=== PATIENT | female | born 1995 | race African-American/Black ===

== ENCOUNTER 2016-11-18 16:34 | Emergency (ER) | payer SELFPAY ==
[2016-11-18 16:43] VITALS: BP 129/66
--- NOTE | 2016-11-18 17:49 | RADIOLOGY REPORT (SQ) ---
EXAM DESCRIPTION: FOREARM LEFT COMPLETED DATE/TIME: 11/18/2016 5:42 pm REASON FOR STUDY: injury, dropped 18 pack of beer on arm :( COMPARISON: None. NUMBER OF VIEWS: Two views. TECHNIQUE: Two radiographic images acquired of the left forearm, including elbow and wrist in at [address] one projection. LIMITATIONS: None. FINDINGS: MINERALIZATION: Normal. BONES: No acute fracture. No worrisome bone lesions. SOFT TISSUES: No obvious swelling or foreign body. OTHER: No other significant finding. IMPRESSION: NEGATIVE STUDY OF THE LEFT FOREARM. NO RADIOGRAPHIC EVIDENCE OF ACUTE INJURY. TECHNICAL DOCUMENTATION: JOB ID: [id number] [employer]- All Rights Reserved
--- NOTE | 2016-11-18 18:06 | ER Document Report ---
HPI - HPI Patient complains to provider of: arm pain Pain Level: 4 Context: 20 yo female c/o left forearm x 1 day. pt was at work today, an 18 pack of beer fell on arm Associated Symptoms: None Exacerbated by: Movement Relieved by: Denies Similar symptoms previously: No Recently seen / treated by doctor: No - ROS Systems Reviewed and Negative: Yes All other systems reviewed and negative - CARDIOVASCULAR Cardiovascular: DENIES: Chest pain - REPRODUCTIVE LMP: September 2016 - DERM Skin Color: Normal Past Medical History - General Information source: Patient - Social History Smoking Status: Never Smoker Chew tobacco use (# tins/day): No Frequency of alcohol use: Rare Drug Abuse: None Lives with: Family Family History: Reviewed & Not Pertinent - Medical History Medical History: Negative Renal/ Medical History: Denies: Hx Peritoneal Dialysis Past Surgical History: Reports: Hx Section, Hx Vascular Surgery - rt arm as child Vertical Provider Document - INFECTION CONTROL TRAVEL OUTSIDE OF THE [place] IN LAST 30 DAYS: No - HEENT HEENT: Atraumatic, PERRLA - NECK Neck: Normal Inspection, Supple - RESPIRATORY Respiratory: Breath Sounds Normal, No Respiratory Distress O2 Sat by Pulse Oximetry: 96 - CARDIOVASCULAR Cardiovascular: Regular Rate, Regular Rhythm - MUSCULOSKELETAL/EXTREMETIES Musculoskeletal/Extremeties: Tender - mild tenderness left radial forearm. mild soft tissue swelling. no deformity. no echymosis. distal SMC intact, FROM wrist and elbow - NEURO Level of Consciousness: Awake, Alert, Appropriate - DERM Integumentary: Warm, Dry Course - Re-evaluation Re-evalutation: 11/18/16 18:05 xray is negative today. results reviewed with patient. grzegorz wrap applied. pt stable for discharge - Vital Signs Vital signs: Temp Pulse Resp BP Pulse Ox 98.2 F 80 12 129/66 H 96 11/18/16 16:40 11/18/16 16:40 11/18/16 16:40 11/18/16 16:40 11/18/16 16:40 Procedures - Immobilization left forearm Pre-Proc Neuro Vasc Exam: Normal Immobilizer type: Grzegorz wrap Performed by: PCT Post-Proc Neuro Vasc Exam: Normal Alignment checked and good: Yes Discharge - Discharge Clinical Impression: Contusion of right forearm Qualifiers: Encounter type: initial encounter Qualified Code(s): S50.11XA - Contusion of right forearm, initial encounter Condition: Stable Disposition: HOME, SELF-CARE Instructions: Contusion ([facility]), Ibuprofen (General) ([facility]), Ice & Elevation ([facility]) , Grzegorz Wrap ([facility]) Additional Instructions: your xray is negative for fracture ice and elevate arm for comfort motrin for pain and swelling wear grzegorz wrap as needed follow up with primary care if pain persists Prescriptions: Ibuprofen [Motrin 800 Mg Tablet] 800 mg PO Q6H #20 tablet
== END 2016-11-18 18:16 | disposition home or self-care (01) ==
LOC: ER 16:34
DX: S50.12XA Contusion of left forearm, initial encounter (principal); W20.8XXA Other cause of strike by thrown, projected or falling object, initial encounter; Y92.9 Unspecified place or not applicable; Y99.0 Civilian activity done for income or pay
CPT/HCPCS: 99283

== ENCOUNTER 2019-02-26 17:29 | Emergency (ER) | payer SELFPAY ==
[2019-02-26 17:53] VITALS: BP 123/61
--- NOTE | 2019-02-26 18:08 | ER Document Report ---
ED Medical Screen (RME) - General Chief Complaint: Vaginal Bleeding Stated Complaint: VAGINAL BLEEDING Time Seen by Provider: 02/26/19 18:00 Mode of Arrival: Ambulatory Information source: Patient Notes: This 23-year-old female presents emergency department with a regular bleeding. Reports she had her menses January 28. Then she had another one this past Sunday. She reports she noted a clot and is worried she is had a miscarriage. G2, P2. No other complaints such as fever vomiting diarrhea. I have greeted and performed a rapid initial assessment of this patient. A comprehensive ED assessment and evaluation of the patient, analysis of test results and completion of the medical decision making process will be conducted by additional ED providers. Dictation of this chart was performed using voice recognition software; therefore, there may be some unintended grammatical errors. TRAVEL OUTSIDE OF THE [place] IN LAST 30 DAYS: No - Related Data Allergies/Adverse Reactions: No Known Allergies Allergy (Verified 02/26/19 18:02) Past Medical History Renal/ Medical History: Denies: Hx Peritoneal Dialysis Past Surgical History: Reports: Hx Section, Hx Vascular Surgery - rt arm as child Physical Exam - Vital signs Vitals: Temp Pulse Resp BP Pulse Ox 98.0 F 86 16 123/61 97 02/26/19 17:52 02/26/19 17:52 02/26/19 17:52 02/26/19 17:52 02/26/19 17:52 Course - Vital Signs Vital signs: Temp Pulse Resp BP Pulse Ox 98.0 F 86 16 123/61 97 02/26/19 17:52 02/26/19 17:52 02/26/19 17:52 02/26/19 17:52 02/26/19 17:52
== END 2019-02-26 19:50 | disposition left against medical advice (07) ==
LOC: ER 17:29
DX: N93.9 Abnormal uterine and vaginal bleeding, unspecified (principal); Z53.20 Procedure and treatment not carried out because of patient's decision for unspecified reasons
CPT/HCPCS: 36415; 84702; 84703